=== PATIENT | female | born 1990 | race American Indian/Alaskan Native ===

== ENCOUNTER 2020-05-27 13:37 | Emergency (ER) | payer OTHER ==
--- NOTE | 2020-05-27 13:59 | Emergency Department Report ---
ED General Adult HPI - General Chief complaint: Chest Pain Stated complaint: CHEST PAIN Time Seen by Provider: 05/27/20 13:49 Source: patient Mode of arrival: Ambulatory Limitations: No Limitations - History of Present Illness Initial comments: Patient is a 29-year-old female presents emergency room complaints of midsternal chest pain that began at 11 AM this morning. Patient states that she has had this intermittently over the last several years and states that she has been evaluated in the emergency department in the past for this. She states that last week she went to her primary care doctor for similar symptoms and that she also had "tense trapezius muscles" and was given a muscle relaxer for her symptoms which she states has been improving. She states that she works in the [employer] department and frequently does heavy lifting. She states that she presents emergency department due to the fact that she wants to know why she keeps having this chest pain, she has never seen a lead die molder. She has not followed up with a lead die molder. she also has a history of anxiety and does not take any medication and is not currently seeing a psychologist. she denies any fall or injury. She denies any fever, nausea, vomiting, diarrhea, cough, hemoptysis, shortness of breath, pleuritic chest pain, leg swelling. She denies any recent travel or recent surgery, sick contacts. She has a past medical history of endometriosis and IBS. She denies any family history of IA. She has an adverse reaction to naproxen but no true medication allergy. She states her last menstrual cycle was last week. - Related Data Previous Rx's Medication Instructions Recorded Last Taken Type Diclofenac Sodium 50 mg PO TID PRN #21 tablet. 05/27/20 Unknown Rx Allergies Allergy/AdvReac Type Severity Reaction Status Date / Time naproxen [From Aleve] Allergy Unknown Verified 10/20/19 12:58 ED Review of Systems ROS: Stated complaint: CHEST PAIN Other details as noted in HPI Comment: All other systems reviewed and negative ED Past Medical Hx - Past Medical History Previous Medical History?: Yes Additional medical history: IBS, endometriosis - Surgical History Past Surgical History?: Yes Additional Surgical History: breast reduction, oral - Social History Smoking Status: Never Smoker Substance Use Type: None - Medications Home Medications: Home Medications Medication Instructions Recorded Confirmed Last Taken Type Diclofenac Sodium 50 mg PO TID PRN #21 tablet. 05/27/20 Unknown Rx ED Physical Exam - General Limitations: No Limitations General appearance: alert, in no apparent distress - Head Head exam: Present: atraumatic, normocephalic - Eye Eye exam: Present: normal appearance - ENT ENT exam: Present: mucous membranes moist - Respiratory Respiratory exam: Present: normal lung sounds bilaterally, chest wall tenderness (reproducible midsternal chest ttp, no crepitus, no deformity, no ecchymosis). Absent: respiratory distress, wheezes, rales, rhonchi, stridor, accessory muscle use, decreased breath sounds, prolonged expiratory - Cardiovascular Cardiovascular Exam: Present: regular rate, normal rhythm, normal heart sounds. Absent: systolic murmur, diastolic murmur, rubs, gallop - Neurological Exam Neurological exam: Present: alert, oriented X3 - Psychiatric Psychiatric exam: Present: normal affect, normal mood - Skin Skin exam: Present: warm, dry, intact ED Course Vital Signs 05/27/20 05/27/20 13:47 14:58 Temperature 98.5 F Pulse Rate 94 H 98 H Respiratory 19 16 Rate Blood Pressure 121/66 Blood Pressure 115/64 [Right] O2 Sat by Pulse 98 98 Oximetry ED Medical Decision Making - EKG Data EKG shows normal: sinus rhythm, axis, intervals Rate: normal - EKG Data 05/27/20 14:51 low voltage no STEMI - Radiology Data Radiology results: report reviewed Ordering Physician: BROOKLYN JACOME Date of Service: 05/27/20 Procedure(s): XR chest routine 2V Accession Number(s): [id number] cc: BROOKLYN JACOME Fluoro Time In Minutes: CHEST 2 VIEWS INDICATION / CLINICAL INFORMATION: CP. COMPARISON: 1120 FINDINGS: SUPPORT DEVICES: None. HEART / MEDIASTINUM: No significant abnormality. LUNGS / PLEURA: No significant pulmonary or pleural abnormality. No pneumothorax. ADDITIONAL FINDINGS: No significant additional findings. IMPRESSION: No significant abnormality or interval change from 10/20/2019 Signer Name: Matt Lundberg MD FACR Signed: 05/27/2020 2:31 PM Workstation Name: [id number] Transcribed By: MS Dictated By: Matt Lundberg MD Electronically Authenticated By: Matt Lundberg MD Signed Date/Time: 05/27/201430 DD/ 1431 TD/TT: - Medical Decision Making Patient is a 29-year-old female presents emergency room complaints of midsternal chest pain that began at 11 AM this morning. Patient states that she has had this intermittently over the last several years and states that she has been evaluated in the emergency department in the past for this. She states that last week she went to her primary care doctor for similar symptoms and that she also had "tense trapezius muscles" and was given a muscle relaxer for her symptoms which she states has been improving. She states that she works in the [employer] and frequently does heavy lifting. She states that she presents emergency department due to the fact that she wants to know why she keeps having this chest pain, she has never seen a lead die molder. She has not followed up with a lead die molder. she also has a history of anxiety and does not take any medication and is not currently seeing a psychologist. she denies any fall or injury. She denies any fever, nausea, vomiting, diarrhea, cough, hemoptysis, shortness of breath, pleuritic chest pain, leg swelling. She denies any recent travel or recent surgery, sick contacts. She has a past medical history of endometriosis and IBS. She denies any family history of IA. She has an adverse reaction to naproxen but no true medication allergy. She states her last menstrual cycle was last week. vitals are normal. on exam:reproducible midsternal chest ttp, no crepitus, no deformity, no ecchymosis. EKG with low voltage, otherwise stable. Chest x-ray with No significant abnormality or interval change from 10/20/2019. Symptoms appear most consistent with costochondritis and likely underlying anxiety. She has no signs of acute psychosis or any acute anxiety at this time. Patient is already taking a muscle relaxer as prescribed by her primary care physician. We will also add an NSAID to help with costochondritis. Patient will be referred to her primary care doctor and a lead die molder. Her chest pain is reproducible and atypical in nature, do not suspect ACS. Wells score is 0, PE very unlikely. Discussed all results with patient answered questions. Patient given prescription for diclofenac. Advised patient Please take medication as prescribed as needed. May use ice for 15 minutes at a time, rest, heat for 15 minutes at a time, Epsom salt bath. Follow-up with a primary care doctor. Follow-up with a lead die molder. Return to emergency room for new or worsening symptoms. Critical care attestation.: If time is entered above; I have spent that time in minutes in the direct care of this critically ill patient, excluding procedure time. ED Disposition Clinical Impression: Atypical chest pain Disposition: DC-01 TO HOME OR SELFCARE Is pt being admited?: No Does the pt Need Aspirin: No Condition: Stable Instructions: Costochondritis Additional Instructions: Please take medication as prescribed as needed. May use ice for 15 minutes at a time, rest, heat for 15 minutes at a time, Epsom salt bath. Follow-up with a primary care doctor. Follow-up with a lead die molder. Return to emergency room for new or worsening symptoms. Prescriptions: Diclofenac Sodium 50 mg PO TID PRN #21 tablet.dr GARCIA Reason: pain Referrals: PRIMARY CARE, [Referring] - 2-3 Days EDIS EPPERSON MD [Staff Physician] - 2-3 Days Forms: Work/School Release Form(ED) Time of Disposition: 14:52 Print Language: ARMENIAN
--- NOTE | 2020-05-27 14:36 | XRay Report ---
CHEST 2 VIEWS INDICATION / CLINICAL INFORMATION: CP. COMPARISON: 1120 FINDINGS: SUPPORT DEVICES: None. HEART / MEDIASTINUM: No significant abnormality. LUNGS / PLEURA: No significant pulmonary or pleural abnormality. No pneumothorax. ADDITIONAL FINDINGS: No significant additional findings. IMPRESSION: No significant abnormality or interval change from 10/20/2019 Signer Name: Matt Lundberg MD FACR Signed: 05/27/2020 2:31 PM Workstation Name: [id number]
[2020-05-27 14:59] VITALS: BP 115/64
--- NOTE | 2020-05-28 10:35 | Electrocardiograph Report ---
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
== END 2020-05-27 14:59 | disposition home or self-care (01) ==
LOC: ED 13:37
DX: R07.89 Other chest pain (principal); Z98.890 Other specified postprocedural states; Z79.899 Other long term (current) drug therapy; Z88.8 Allergy status to other drugs, medicaments and biological substances
CPT/HCPCS: 71046; 93005

== ENCOUNTER 2020-06-24 02:30 | Emergency (ER) | payer OTHER ==
[2020-06-24 03:26] LABS: Basophils % (Auto) 0.3 % (0.0-1.8); Eosinophils # (Auto) 0.1 K/mm3 (0.0-0.4); Eosinophils % (Auto) 1.4 % (0.0-4.3); Hematocrit 37.6 % (30.3-42.9); Hemoglobin 13.2 gm/dl (10.1-14.3); Lymphocytes # (Auto) 1.3 K/mm3 (1.2-5.4); Lymphocytes % (Auto) 19.5 % (13.4-35.0); Mean Corpuscular HGB Conc 35 % (30-34); Mean Corpuscular Volume 88 fl (79-97); Monocytes # (Auto) 0.5 K/mm3 (0.0-0.8); Monocytes % (Auto) 7.3 % (0.0-7.3); Platelet Count 394 K/mm3 (140-440); Red Blood Count 4.28 M/mm3 (3.65-5.03)
[2020-06-24 03:28] LABS: Bacteria,Urine 1+ /HPF (Negative); Bilirubin,Urine NEG (Negative); Blood,Urine NEG (Negative); Color,Urine Yellow (Yellow); Mucus,Urine FEW /HPF; Protein,Urine <15 mg/dL mg/dL (Negative); Urobilinogen,Urine < 2.0 mg/dL (<2.0)
[2020-06-24 03:47] LABS: Alanine Aminotransferase 19 units/L (7-56); Albumin 4.1 g/dL (3.9-5); Blood Urea Nitrogen 6 mg/dL (7-17); Calcium 9.5 mg/dL (8.4-10.2); Hemolysis Index 4
[2020-06-24 04:01] LABS: BUN/Creatinine Ratio 10
[2020-06-24 05:13] LABS: HCG Qualitative,Urine Negative (Negative)
--- NOTE | 2020-06-24 06:27 | Cat Scan Report ---
CT ABDOMEN AND PELVIS WITH IV CONTRAST INDICATION: Patient complains of abd pain with a history of I.B.S.. COMPARISON: None available. TECHNIQUE: All CT scans at this facility use dose modulation, automated exposure control, iterative reconstructi on or weight based dosing, when appropriate, to reduce radiation dose to as low as reasonably achieva ble. FINDINGS: Lung Bases: No significant abnormality. Skeletal System: No acute abnormality. ABDOMEN: Liver: Within the anterior liver, there is a 2.2 cm hypodensity with peripheral nodular enhancement. On delayed phase imaging this shows gradual fill-in. This is most likely an incidental hepatic anastasiya ioma. The liver is otherwise unremarkable.. Gallbladder: No significant abnormality. Bile Ducts: No significant abnormality. Pancreas: No significant abnormality. Spleen: No significant abnormality. Adrenals: No significant abnormality. Right Kidney: No significant abnormality. Left Kidney: No significant abnormality. Upper GI tract: No significant abnormality. Lymph Nodes: No significant adenopathy. Aorta: No significant abnormality. Additional Findings: No significant abnormality. PELVIS: Colon: No acute abnormality. Urinary Bladder and Distal Ureters: No significant abnormality. Appendix: No significant abnormality. Lymph Nodes: No significant adenopathy. Additional Findings: None. IMPRESSION: 1. No acute process in the abdomen or pelvis. 2. Incidental findings, as above. Signer Name: Hilario Meraz MD Signed: 06/24/2020 6:23 AM Workstation Name: [id number]
[2020-06-24 07:10] VITALS: BP 126/65
--- NOTE | 2020-06-24 09:15 | Emergency Department Report ---
ED Abdominal Pain HPI - General Chief Complaint: Abdominal Pain Stated Complaint: WEAKNESS/STOMACH PAINS Time Seen by Provider: 06/24/20 09:11 Source: patient Mode of arrival: Ambulatory Limitations: No Limitations - History of Present Illness Initial Comments: This is a 29-year-old female who states that she is feeling better but still has some residual abdominal pain. She states that it is typical for her irritable bowel syndrome. She states that she started having trouble on Saturday with constipation followed by diarrhea. She has had no bowel movement over the last less than 24 hours. She complains of some crampy abdominal discomfort in the periumbilical area at about 2:00 last night initially constant which later became more intermittent. She states her temperature was 100 at home. She took some Tylenol. She believes the symptoms are consistent with her IBS. She does see a GI doctor. She has a medication that she which she takes for IBS which she took on Saturday several times and also last night. She has had no signs of GI bleeding. MD Complaint: abdominal pain -: Gradual, hour(s) Location: periumbilical Radiation: none Migration to: no migration Severity: moderate Quality: cramping Consistency: constant, intermittent (Was constant now intermittent) Improves With: nothing Context: other (IBS) Associated Symptoms: denies other symptoms, fever (See HPI). denies: chills Treatments Prior to Arrival: other (Tylenol and irritable bowel medication) - Related Data Previous Rx's Medication Instructions Recorded Last Taken Type Diclofenac Sodium 50 mg PO TID PRN #21 tablet. 05/27/20 Unknown Rx traMADoL [Ultram] 50 mg PO Q6HR PRN #10 tablet 06/24/20 Unknown Rx Allergies Allergy/AdvReac Type Severity Reaction Status Date / Time naproxen [From Aleve] Allergy Unknown Verified 10/20/19 12:58 ED Review of Systems ROS: Stated complaint: WEAKNESS/STOMACH PAINS Other details as noted in HPI Constitutional: fever (Low-grade). denies: chills Eyes: denies: eye pain, vision change ENT: denies: ear pain, throat pain Respiratory: denies: cough, shortness of breath Cardiovascular: denies: chest pain, palpitations Endocrine: no symptoms reported Gastrointestinal: abdominal pain. denies: nausea, vomiting, diarrhea Genitourinary: denies: urgency, dysuria, discharge Musculoskeletal: joint swelling. denies: back pain, arthralgia Skin: denies: rash, lesions Neurological: denies: headache, weakness, paresthesias Psychiatric: denies: anxiety, depression Hematological/Lymphatic: denies: easy bleeding, easy bruising ED Past Medical Hx - Past Medical History Previous Medical History?: Yes Additional medical history: IBS, endometriosis - Surgical History Past Surgical History?: Yes Additional Surgical History: breast reduction, oral - Social History Smoking Status: Never Smoker Substance Use Type: None - Medications Home Medications: Home Medications Medication Instructions Recorded Confirmed Last Taken Type Diclofenac Sodium 50 mg PO TID PRN #21 tablet. 05/27/20 Unknown Rx traMADoL [Ultram] 50 mg PO Q6HR PRN #10 tablet 06/24/20 Unknown Rx ED Physical Exam - General Limitations: No Limitations General appearance: alert, in no apparent distress - Head Head exam: Present: atraumatic, normocephalic - Eye Eye exam: Present: normal appearance. Absent: scleral icterus - ENT ENT exam: Present: mucous membranes moist - Neck Neck exam: Present: normal inspection. Absent: meningismus - Respiratory Respiratory exam: Present: normal lung sounds bilaterally. Absent: respiratory distress - Cardiovascular Cardiovascular Exam: Present: normal rhythm, tachycardia (Mildly). Absent: systolic murmur, diastolic murmur, rubs, gallop - GI/Abdominal GI/Abdominal exam: Present: soft, normal bowel sounds. Absent: distended, tenderness, guarding, rebound, rigid - Extremities Exam Extremities exam: Present: normal inspection - Back Exam Back exam: Present: normal inspection - Neurological Exam Neurological exam: Present: alert, oriented X3, CN II-XII intact. Absent: motor sensory deficit - Psychiatric Psychiatric exam: Present: normal affect, normal mood - Skin Skin exam: Present: warm, dry, intact, normal color. Absent: rash ED Course Vital Signs 06/24/20 02:38 Temperature 98.7 F Pulse Rate 104 H Respiratory 17 Rate Blood Pressure 126/65 O2 Sat by Pulse 97 Oximetry - Reevaluation(s) Reevaluation #1: CT and laboratory work-up are not indicative of a need to admit the patient. She will be given analgesia and IV fluids. 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 06/24/20 09:39 ED Medical Decision Making - Lab Data Result diagrams: 06/24/20 02:58 06/24/20 02:58 Laboratory Results - last 24 hr 06/24/20 06/24/20 06/24/20 02:58 02:58 03:15 WBC 6.7 RBC 4.28 Hgb 13.2 Hct 37.6 MCV 88 MCH 31 MCHC 35 H RDW 13.0 L Plt Count 394 Lymph % (Auto) 19.5 [place] % (Auto) 7.3 Eos % (Auto) 1.4 Baso % (Auto) 0.3 Lymph # (Auto) 1.3 [place] # (Auto) 0.5 Eos # (Auto) 0.1 Baso # (Auto) 0.0 Seg Neutrophils % 71.5 H Seg Neutrophils # 4.8 Sodium 134 L Potassium 4.2 Chloride 99.5 Carbon Dioxide 24 Anion Gap 15 BUN 6 L Creatinine 0.6 Estimated GFR > 60 BUN/Creatinine Ratio 10 Glucose 99 Calcium 9.5 Total Bilirubin 0.50 AST 18 ALT 19 Alkaline Phosphatase 62 Total Protein 7.4 Albumin 4.1 Albumin/Globulin Ratio 1.2 Urine Color Yellow Urine Turbidity Clear Urine pH 7.0 Ur Specific [place] 1.011 Urine Protein <15 mg/dl Urine Glucose (UA) Neg Urine Ketones Neg Urine Blood Neg Urine Nitrite Neg Urine Bilirubin Neg Urine Urobilinogen < 2.0 Ur Leukocyte Esterase Tr Urine WBC (Auto) 1.0 Urine RBC (Auto) 3.0 U Epithel Cells (Auto) 4.0 Urine Bacteria (Auto) 1+ Urine Mucus Few Urine HCG, Qual 06/24/20 03:15 WBC RBC Hgb Hct MCV MCH MCHC RDW Plt Count Lymph % (Auto) [place] % (Auto) Eos % (Auto) Baso % (Auto) Lymph # (Auto) [place] # (Auto) Eos # (Auto) Baso # (Auto) Seg Neutrophils % Seg Neutrophils # Sodium Potassium Chloride Carbon Dioxide Anion Gap BUN Creatinine Estimated GFR BUN/Creatinine Ratio Glucose Calcium Total Bilirubin AST ALT Alkaline Phosphatase Total Protein Albumin Albumin/Globulin Ratio Urine Color Urine Turbidity Urine pH Ur Specific [place] Urine Protein Urine Glucose (UA) Urine Ketones Urine Blood Urine Nitrite Urine Bilirubin Urine Urobilinogen Ur Leukocyte Esterase Urine WBC (Auto) Urine RBC (Auto) U Epithel Cells (Auto) Urine Bacteria (Auto) Urine Mucus Urine HCG, Qual Negative - Radiology Data Radiology results: report reviewed (CT the abdomen shows a hepatic hemangioma most likely which is an incidental finding on an otherwise normal CT) Critical care attestation.: If time is entered above; I have spent that time in minutes in the direct care of this critically ill patient, excluding procedure time. ED Disposition Clinical Impression: Abdominal pain Qualifiers: Abdominal location: periumbilical Qualified Code(s): R10.33 - Periumbilical pain Irritable bowel syndrome Qualifiers: Irritable bowel syndrome type: unspecified Qualified Code(s): K58.9 - Irritable bowel syndrome without diarrhea Disposition: - TO HOME OR SELFCARE Is pt being admited?: No Does the pt Need Aspirin: No Condition: Stable Instructions: Abdominal Pain (ED), Abdominal Pain, Adult, [id number], Irritable Bowel Syndrome, Adult Additional Instructions: Follow-up with your GI physician. Return to the emergency department any acute change or problem. Check your temperature. Return any significant fever. Prescriptions: traMADoL [Ultram] 50 mg PO Q6HR PRN #10 tablet PRN Reason: Pain Referrals: PRIMARY CARE, [Primary Care Provider] - 3-5 Days Time of Disposition: 09:40
[2020-06-24] MEDS ORDERED: SODIUM CHLORIDE 0.9% 1000 ML 1,000 ML IV ONE (09:30)
[2020-06-24] MEDS ORDERED: ONDANSETRON 4 MG/2 ML INJ IV ONE (09:30)
[2020-06-24] MEDS ORDERED: MORPHINE 2 MG/1 ML INJ IV ONE (09:30)
== END 2020-06-24 11:11 | disposition home or self-care (01) ==
LOC: ED 02:30
DX: K58.9 Irritable bowel syndrome, unspecified (principal); R10.33 Periumbilical pain; Z98.890 Other specified postprocedural states; Z79.899 Other long term (current) drug therapy; Z88.8 Allergy status to other drugs, medicaments and biological substances
CPT/HCPCS: 36415; 74177; 80053; 81001; 81025; 85025; 96361; 96374; 96375; 99284; J2270; J2405; J7030; Q9967